=== PATIENT | female | born 1965 | race Two or more races ===

== ENCOUNTER 2022-10-02 06:19 | Inpatient (IN) | payer MEDICARE, BC ==
[2022-09-28 08:55] LABS: Urine WBC None Seen /hpf (0 - 5)
[2022-09-28 09:02] LABS: Hematocrit 39.8 % (36.0-46.0); Mean Corpuscular Hemoglobin 30.5 pg (28.0-32.0); Mean Corpuscular Hgb Conc. 32.6 g/dL (32.0-36.0); Mean Corpuscular Volume 93.5 fL (80.0-100.0); Red Blood Cells 4.25 10^6/uL (4.0-5.20); Red Cell Distribution Width 13.8 % (11.8-14.3); White Blood Cell 6.1 10^3/uL (4.4-10.8)
[2022-09-28 09:04] LABS: Band Neutrophils % (manual) 0; Basophils % (manual) 0 (0.0-2.0); Blast Cells 0; Eosinophils % (manual) 0 (0-7); Metamyelocytes % 0; Myelocytes % 0; Promyelocytes % 0; Reactive Lymphocytes 0
[2022-09-28 09:12] LABS: INR 0.94 (0.9-1.15); Partial Thromboplastin Time 26.6 sec (24.6-33.4)
[2022-09-28 09:25] LABS: Lymphocytes % (manual) 58 (10.0-50.0); Monocytes % (manual) 10 (0-12)
[2022-09-28 09:33] LABS: Urine Bacteria FEW /hpf (None Seen); Urine Blood TRACE /uL (Negative); Urine Specific Gravity 1.005 (1.001-1.035)
[2022-09-28 10:33] LABS: Potassium 4.2 mmol/L (3.5-5.1)
[2022-09-28 10:43] LABS: Albumin 3.9 g/dL (3.4-5.0); BUN/Creatinine Ratio 10.8; Bilirubin, Total 0.2 mg/dL (0.2-1.0); Calcium 9.6 mg/dL (8.5-10.1)
[~2022-10-02] VITALS: Ht 157.5 cm; Wt 56.6 kg
[~2022-10-02 06:19] MED LIST: CELE200C PO; CYCL-837 PO; MORP15TA PO
[2022-10-02] MEDS ORDERED: BUPIVACAINE 0.75% INJ 10ML MPV SDV IJ ONE (06:38)
[2022-10-02] MEDS ORDERED: EPINEPHrine HCL 1 MG/1 ML AMP ONE (06:38)
[2022-10-02] MEDS ORDERED: DexAMETHasone SOD PHOS 4 MG/1ML SDV INJ ONE (06:38)
[2022-10-02] MEDS ORDERED: ceFAZolin 1GM/50ML 100 ML IV ONE (06:44)
[2022-10-02] MEDS ORDERED: LIDOCAINE HCL 100 MG/5ML (2%) SYRG INJ IV ONE (06:52)
[2022-10-02] MEDS ORDERED: PROPOFOL 10 MG/ML 20 ML IV ONE (06:52)
[2022-10-02] MEDS ORDERED: ROCURONIUM 10MG/ML 10ML VIAL IV ONE (06:53)
[2022-10-02] MEDS ORDERED: DexAMETHasone SOD PHOS 10MG/1ML VIAL INJ ONE (06:53)
[2022-10-02] MEDS ORDERED: ONDANSETRON HCL 4 MG/2 ML VIAL ONE (06:53)
[2022-10-02] MEDS ORDERED: GLYCOPYRROLATE 0.2 MG/ML 1ML VIAL ONE (06:53)
[2022-10-02] MEDS ORDERED: KETOROLAC TROMETH 30 MG/ML 1ML VIAL ONE (06:53)
[2022-10-02] MEDS ORDERED: fentaNYL CITRATE 100 MCG/2 ML VL ONE (06:54)
[2022-10-02] MEDS ORDERED: KETAMINE HCL 10 ML ONE (06:54)
[2022-10-02] MEDS ORDERED: SUGAMMADEX 200mg/2ml Vial (100MG/ML) IV ONE (06:55)
[2022-10-02] MEDS ORDERED: LIDOCAINE 2% JELLY 11ml (GLYDO) ONE (07:00)
[2022-10-02] MEDS ORDERED: LIDOCAINE W/ EPINEPHRINE 1% 20ML VIAL ONE (07:05)
[2022-10-02] MEDS ORDERED: BUPIVACAINE 0.5% P/F INJ 10 ML VIAL ONE (07:05)
[2022-10-02] MEDS ORDERED: METHYLENE BLUE 0.5% 5MG/ML 10ml AMP IV ONE (07:05)
[2022-10-02] MEDS ORDERED: SODIUM CHLORIDE LOCK 20 ML ONE (07:57)
[2022-10-02] MEDS ORDERED: PHENYLEPHRINE HCL 10 MG/ML VL ONE (08:14)
[2022-10-02] MEDS ORDERED: ESMOLOL HCL 10 ML IV ONE (08:20)
[2022-10-02] MEDS ORDERED: ceFAZolin 1GM/50ML 50 ML IV ONE (10:00)
[2022-10-02] MEDS ORDERED: NITROGLYCERIN 0.4 MG SL TAB SL PRN (10:00)
[2022-10-02] MEDS ORDERED: ACETAMINOPHEN IV 100 ML IV ONE (10:00)
[2022-10-02] MEDS ORDERED: LABETALOL HCL 5 MG/ML 4ML SYRINGE IV PRN (10:15)
[2022-10-02] MEDS ORDERED: ONDANSETRON HCL 4 MG/2 ML VIAL IV PRN (10:15)
[2022-10-02] MEDS ORDERED: NALOXONE HCL 0.4 MG/ML VIAL IV PRN (10:15)
[2022-10-02] MEDS ORDERED: HYDROmorphone HCL 2 MG/ML VL/or syr IV PRN (10:15)
[2022-10-02] MEDS ORDERED: FLUMAZENIL 0.1 MG/ML INJ 10ML MDV IV PRN (10:15)
[2022-10-02] MEDS ORDERED: hydrALAZINE HCL 20 MG/ML VL IV PRN (10:15)
[2022-10-02] MEDS ORDERED: fentaNYL CITRATE 100 MCG/2 ML VL IV PRN (10:15)
[2022-10-02] MEDS ORDERED: ePHEDrine SULFATE 50 MG/ML AMP IV PRN (10:15)
[2022-10-02] MEDS: HYDROcodone-ACET 5/325MG TAB PO PRN ×2 (11:25→18:06)
[2022-10-02] MEDS ORDERED: HYDROmorphone HCL 2 MG/ML VL/or syr IV ONE ×4 (12:20→13:40)
[2022-10-02] MEDS: SODIUM CHLORIDE 0.9% 1,000 ML IV SCH ×2 (15:33→18:33)
[2022-10-02] MEDS: MORPHINE SULFATE 4 MG/ML SYR/VIAL IV PRN ×2 (16:53→20:57)
[2022-10-02 17:00] VITALS: BP 136/94
[2022-10-02] MEDS: CYCLOBENZAPRINE HCL 10 MG TAB PO PRN (18:24)
[2022-10-02] MEDS: ONDANSETRON HCL 4 MG/2 ML VIAL IV PRN (20:57)
[2022-10-03] MEDS: HYDROcodone-ACET 5/325MG TAB PO PRN ×3 (00:14→12:53)
[2022-10-03] MEDS: ONDANSETRON HCL 4 MG/2 ML VIAL IV PRN (01:19)
[2022-10-03] MEDS: MORPHINE SULFATE 4 MG/ML SYR/VIAL IV PRN ×2 (01:19→08:38)
[2022-10-03] MEDS: SODIUM CHLORIDE 0.9% 1,000 ML IV SCH ×2 (03:56→09:04)
[2022-10-03] MEDS: CYCLOBENZAPRINE HCL 10 MG TAB PO PRN ×2 (04:09→12:53)
[2022-10-03 09:00] VITALS: BP 123/82
[2022-10-03 13:00] VITALS: BP 129/85
== END 2022-10-03 17:32 | disposition home or self-care (01) | DRG 743 ==
LOC: SUR 06:19 → OVERFLOW 09:59 → WEST WING 15:09
PROVIDERS: ADMIT Obstetrics & Gynecology; ATTEND Obstetrics & Gynecology
PROC: 0UB24ZZ Excision of Bilateral Ovaries, Percutaneous Endoscopic Approach (ICD-10-PCS; 2022-10-02)
PROC: 0UB74ZZ Excision of Bilateral Fallopian Tubes, Percutaneous Endoscopic Approach (ICD-10-PCS; 2022-10-02)
PROC: 8E0W4CZ Robotic Assisted Procedure of Trunk Region, Percutaneous Endoscopic Approach (ICD-10-PCS; 2022-10-02)
PROC: 0UT94ZL Resection of Uterus, Supracervical, Percutaneous Endoscopic Approach (ICD-10-PCS; principal; 2022-10-02 07:29)
DX: N81.2 Incomplete uterovaginal prolapse (principal); D51.9 Vitamin B12 deficiency anemia, unspecified; N92.5 Other specified irregular menstruation; D63.8 Anemia in other chronic diseases classified elsewhere; N94.89 Other specified conditions associated with female genital organs and menstrual cycle; Z20.822 Contact with and (suspected) exposure to COVID-19
CPT/HCPCS: 36415; 80053; 81001; 85007; 85027; 85610; 85730; 86850; 86900; 86901; G0378; J0131; J0171; J0690; J1100; J1885; J2405; J2704; J3490